=== PATIENT | male | born 2000 | race Caucasian/White ===

== ENCOUNTER 2023-03-05 10:30 | Emergency (ER) | payer OTHER, SELFPAY ==
[2023-03-05 10:47] VITALS: BP 137/101; PULSE 91; RESP 16; TEMP 36.3; O2SAT 100
[2023-03-05 10:52] VITALS: BP 137/101; PULSE 91; RESP 16; TEMP 36.3; O2SAT 100
--- NOTE | 2023-03-05 10:57 | ED.WOUNDLAC ---
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 Patient denies profuse bleeding or inability to bend finger. Patient states it does hurt to bend. Sensation normal. Patient up-to-date tetanus shot. Related Data Home Medications Medication Instructions Recorded Confirmed lisdexamfetamine 40 mg capsule 40 mg PO DAILY 03/05/23 03/05/23 (Vyvanse) Allergies Allergy/AdvReac Type Severity Reaction Status Date / Time No Known Allergies Allergy Verified 03/05/23 10:51 Review of Systems Review of Systems: All systems reviewed & are unremarkable except as noted in HPI and below Constitutional: Constitutional: Denies body ache(s), Denies chills, Denies fatigue, Denies fever(s), Denies headache(s), Denies malaise and Denies weakness Eyes: Eyes: Denies blurry vision, Denies irritation and Denies loss of vision ENT: Denies otalgia, Denies headache(s), Denies nasal discharge, Denies sinus pain and Denies sore throat Cardiovascular: Cardiovascular: Denies chest pain, Denies irregular heart rhythm and Denies dyspnea Respiratory: Respiratory: Denies dyspnea Gastrointestinal: Gastrointestinal: Denies abdominal pain, Denies melena, Denies hematochezia, Denies diarrhea, Denies nausea and Denies vomiting Musculoskeletal: Musculoskeletal: Denies back pain, Denies myalgias and Denies arthralgias Integumentary/Breasts: Skin/Breast: Denies pruritus, Denies rash and Reports wounds Neurologic: Denies headache(s), Denies loss of vision and Denies weakness Psychiatric: Psychiatric: Reports no additional psychiatric complaints Endocrine: Endocrine: Denies fatigue PMFSH Comments At time of signature, agree with nursing past medical, surgical, social and family history. There is no relevant family history pertinent to the presenting complaint. Exam Const: General: cooperative, healthy appearing, comfortable, no acute distress and well nourished Nutritional Appearance: well nourished Orientation/consciousness: patient oriented x3 Limitations: no limitations HENMT: Head: normal to inspection, normocephalic and atraumatic Ears: hearing grossly normal bilaterally and external ears normal Face/Nose/Sinus: Normal external nose present, normal facial exam and face symmetric Face and sinus: normal facial exam and face symmetric Mouth: Yes lip normal Eyes: General: appearance normal, both eyes and all related structures Alignment and Position: alignment normal and position normal Periorbital: periorbital findings normal Eyelids: eyelids normal Pupils: Equal, round and reactive pupils present EOM: EOMs intact bilaterally Neck: Neck: normal visual inspection, full ROM and supple Chest: Chest palpation & inspection: normal inspection of the chest Resp: Effort & Inspection: normal respiratory effort and able to speak in complete sentences Auscultation: clear to auscultation bilaterally Cardio: Rate: regular rate Rhythm: regular rhythm Heart sounds: S1 normal heart sound present and S2 normal heart sound present GI: Inspection: normal to inspection Skin: General skin exam: normal color and no rashes or lesions noted Neuro: General: patient oriented x3 and moves all extremities Cranial nerves: Yes Equal, round and reactive pupils present Speech: normal speech Gait exam (Neuro): Normal gait present Extrem: General: normal to inspection, full ROM and no edema Left upper extremity: hand normal to inspection, normal capillary refill, neuromotor exam normal Details: wrist extension normal, thumb opposition normal, thumb IP flexion normal, thumb ADduction normal and fingers 2-5 ABduction normal, neurosensory exam no
[2023-03-05 11:20] VITALS: BP 130/89; PULSE 94
== END 2023-03-05 11:23 | disposition home or self-care (01) ==
PROVIDERS: Emergency Provider Nurse Practitioner Family; PCP Family Medicine
DX: S61.211A Laceration without foreign body of left index finger without damage to nail, initial encounter (principal); X58.XXXA Exposure to other specified factors, initial encounter; Y99.0 Civilian activity done for income or pay; F90.9 Attention-deficit hyperactivity disorder, unspecified type
CPT/HCPCS: 12001; 99202; G0463

== ENCOUNTER 2024-06-02 17:41 | Emergency (ER) | payer OTHER, SELFPAY ==
[2024-06-02 17:51] VITALS: BP 146/97; PULSE 104; RESP 18; TEMP 36.7; O2SAT 100
--- NOTE | 2024-06-02 18:05 | ED.GENADULT ---
HPI - General Adult General Chief complaint: Unspecified Stated complaint: blood pressure check Time Seen by Provider: 06/02/24 18:06 Source: patient, RN notes reviewed and old records reviewed Mode of arrival: ambulatory Limitations: no limitations History of Present Illness HPI narrative: patient presents with concerns about his elevated blood pressure he reports that he has been following with his primary care provider, has had elevated blood pressure for at least 1 year now. Reports that his primary care provider has been hesitant to put him on medications due to his age. Patient does not have a next appointment until September. He is here to have his blood pressure checked, reports that he is not sure that his blood pressure cuff at home is working properly. He reports he has already ordered a new 1, just wants blood pressure checked in the meantime. He denies any dizziness, chest pain, shortness of breath. Related Data Home Medications Medication Instructions Recorded Confirmed lisdexamfetamine 40 mg capsule 40 mg PO DAILY 03/05/23 06/02/24 (Vyvanse) Allergies Allergy/AdvReac Type Severity Reaction Status Date / Time No Known Allergies Allergy Verified 06/02/24 18:03 Review of Systems Review of Systems: All systems reviewed & are unremarkable except as noted in HPI and below Constitutional: Constitutional: Reports no additional constitutional complaints ENT: Reports system reviewed and no additional complaints, except as documented Cardiovascular: Cardiovascular: Reports no additional cardiovascular complaints Comments: Chronically elevated blood pressure Respiratory: Respiratory: Reports no additional respiratory complaints Gastrointestinal: Gastrointestinal: Reports no additional gastrointestinal complaints PMFSH Comments At the time of my signature, I reviewed and agree with the nursing past medical, surgical, social, and family history. There is no relevant family history pertinent to the patient complaint. Exam Const: General: cooperative, no acute distress, alert and awake Orientation/consciousness: oriented to person, oriented to place and oriented to time HENMT: Head: normal to inspection Resp: Effort & Inspection: normal respiratory effort and able to speak in complete sentences Auscultation: clear to auscultation bilaterally, no crackles, no rales, no rhonchi and no wheezes Cardio: Palpation: normal PMI Rate: regular rate Rhythm: regular rhythm Heart sounds: S1 normal heart sound present and S2 normal heart sound present Neuro: General: oriented to person, oriented to place and oriented to time Cranial nerves: Yes CN's II-XII intact bilaterally Psych: Appearance: grossly normal Thought process: Normal thought process present Insight: Good insight present (Psych) Judgement: Good judgement present (Psych) Course Course Emergency Course: elevated blood pressure and mild tachycardia noted. Patient does admit that he vapes and drinks a lot of caffeine. Also states that he checks blood pressure almost daily and it is always above 140/90. Normal physical exam. He is advised to follow up immediately with primary care provider, emergency department for any new or worse symptoms. Discharge instructions reviewed with patient, as well as provided in writing per nursing staff. The instructions also include specific and strict return/GO TO THE ER as well as f/u information. All questions have been answered, and the patient deny any further questions with discharge and discharge plan. Some parts of this dictation were generated by voice recognition software and may contain typographical and/or grammatical inaccuracies. Level of Care: Express Care Visit Vital Signs Vital signs: Vital Signs Temperature 98.1 F 06/02/24 17:51 Pulse Rate 104 H 06/02/24 17:51 Respiratory Rate 18 06/02/24 17:51 Blood Pressure 146/97 H 06/02/24 17:51 Pulse Oximetry 100 06/02/24 17:51
== END 2024-06-02 18:19 | disposition home or self-care (01) ==
PROVIDERS: Emergency Provider Nurse Practitioner Family; PCP Family Medicine
DX: R03.0 Elevated blood-pressure reading, without diagnosis of hypertension (principal); F90.9 Attention-deficit hyperactivity disorder, unspecified type
CPT/HCPCS: 99211; G0463